=== PATIENT | male | born 1960 | race Caucasian/White ===

== ENCOUNTER 2017-06-28 17:52 | Emergency (ER) | payer MEDICARE, MEDICAID ==
[2017-06-28 18:00] VITALS: BP 106/72
--- NOTE | 2017-06-28 18:18 | EDM.PDOC ---
ED HPI GENERAL MEDICAL PROBLEM - General Chief Complaint: Upper Extremity Injury/Pain Stated Complaint: RIGHT LOWER ARM Time Seen by Provider: 06/28/17 17:57 Source of Information: Reports: Patient, RN, RN Notes Reviewed History Limitations: Reports: No Limitations - History of Present Illness INITIAL COMMENTS - FREE TEXT/NARRATIVE: Patient presents to the ED at [facility] complaining of right forearm pain secondary to injury. Patient states he was working on his travel trailer and had it propped up. He states the trailer somehow felt off the holdings and landed on his right forearm. Patient denies any other injury or trauma. No previous right arm surgeries. Patient denies any right elbow are right wrist complaints. Patient has complete ROM of the right upper extremity. Onset Date: 06/26/17 Duration: Waxing/Waning Location: Reports: Upper Extremity, Right (Right forearm) Quality: Reports: Ache Severity: Mild Context: Reports: Trauma Treatments MEDICAL SUPERVISOR: Reports: NSAIDS, Other (see below) (Tramadol) Right Arm Pain Score (Numeric/FACES): 5 - Related Data Allergies Allergy/AdvReac Type Severity Reaction Status Date / Time No Known Allergies Allergy Verified 06/28/17 18:02 Home Meds: Home Meds Cyanocobalamin (Vitamin B-12) [Liquid B-12] 1,000 mcg PO ASDIRECTED 02/07/14 [ History] Nystatin/Triamcinolone Crm [Nystatin/Triamcinolone Cream] 1 applic TOP TID PRN 02/07/14 [History] Omeprazole [Prilosec] 40 mg PO DAILY 02/07/14 [History] Pregabalin [Lyrica] 100 mg PO BID 02/07/14 [History] Promethazine [Phenergan] 25 mg PO TID PRN 02/07/14 [History] Valsartan/Hydrochlorothiazide [Valsartan-Hctz 160-25 mg Tab] 0.5 tab PO DAILY [History] traMADol [Ultram] 50 mg PO Q6H PRN 02/07/14 [History] Sildenafil [Viagra] 1 tab PO ASDIRECTED 07/31/15 [History] Past Medical History Cardiovascular History: Reports: Hypertension Gastrointestinal History: Reports: GERD Other Gastrointestinal History: hernia Other Genitourinary History: ED Musculoskeletal History: Reports: Back Pain, Chronic - Past Surgical History GI Surgical History: Reports: Cholecystectomy Social & Family History - Tobacco Use Smoking Status *Q: Never Smoker Years of Tobacco use: 39 Packs/Tins Daily: 1 Second Hand Smoke Exposure: No - Alcohol Use Days Per Week of Alcohol Use: 0 Number of Drinks Per Day: 0 Total Drinks Per Week: 0 - Recreational Drug Use Recreational Drug Use: No Drug Use in Last 12 Months: No Review of Systems - Review of Systems Review Of Systems: See Below Constitutional: Denies: Chills, Fever Respiratory: Denies: Shortness of Breath, Cough Cardiovascular: Denies: Chest Pain, Palpitations Musculoskeletal: Reports: Arm Pain (Right forearm), Muscle Pain, Muscle Stiffness Skin: Reports: No Symptoms Neurological: Reports: No Symptoms ED EXAM, GENERAL - Physical Exam Exam: See Below Exam Limited By: No Limitations General Appearance: Alert, No Apparent Distress Respiratory/Chest: No Respiratory Distress, Lungs Clear, Normal Breath Sounds Cardiovascular: Normal Peripheral Pulses, Regular Rate, Rhythm Peripheral Pulses: 2+: Radial (L), Radial (R) Extremities: Arm Pain, Increased Warmth, Redness. No: Limited Range of Motion Neurological: Alert, Oriented Skin Exam: Warm, Dry, Intact, Normal Color, No Rash Course - Vital Signs Last Recorded V/S: Last Vital Signs Temp 37.7 C 06/28/17 17:57 Pulse 91 06/28/17 17:57 Resp 18 06/28/17 17:57 BP 106/72 06/28/17 17:57 Pulse Ox 95 06/28/17 17:57 - Orders/Labs/Meds Orders: Active Orders 24 hr Category Date Time Status Forearm 2V Rt [CR] Stat Exams 06/28/17 18:23 Ordered Departure - Departure Time of Disposition: 18:40 Disposition: Home, Self-Care 01 Condition: Good Clinical Impression: Right arm pain Right forearm injury Qualifiers: Encounter type: initial encounter Qualified Code(s): S59.911A - Unspecified injury of right forearm, initial encounter - Discharge Information Instructions: Pain Medicine Instructions, [id number], Muscle Pain, Adult Forms: ED Department Discharge Additional Instructions: 1. Stay well hydrated and rest 2. Rest, elevate, and ice the right forearm several times a day; pain and symptoms will not get better unless the arm is rested 3. Use NASH wrap to help with swelling and pain 4. May alternate Tylenol/Advil as needed 5. Continue to use your Tramadol 5. See you Primary as symptoms warrant - Problem List Review Problem List Initiated/Reviewed/Updated: Yes - My Orders Last 24 Hours: My Active Orders 06/28/17 18:23 Forearm 2V Rt [CR] Stat - Assessment/Plan Last 24 Hours: My Active Orders 06/28/17 18:23 Forearm 2V Rt [CR] Stat
== END 2017-06-28 18:47 | disposition home or self-care (01) ==
LOC: VM.ED 17:52
DX: S59.911A Unspecified injury of right forearm, initial encounter (principal); I10 Essential (primary) hypertension; K21.9 Gastro-esophageal reflux disease without esophagitis; Z90.49 Acquired absence of other specified parts of digestive tract; Z79.899 Other long term (current) drug therapy; W20.8XXA Other cause of strike by thrown, projected or falling object, initial encounter; Y99.0 Civilian activity done for income or pay
CPT/HCPCS: 73090-RT; 99283; 99283-GF

== ENCOUNTER 2018-02-15 12:07 | Emergency (ER) | payer MEDICARE, MEDICAID ==
--- NOTE | 2018-02-15 12:25 | EDM.PDOC ---
ED HPI GENERAL MEDICAL PROBLEM - General Chief Complaint: General Stated Complaint: FALL Time Seen by Provider: 02/15/18 12:14 Source of Information: Reports: Patient, Family, RN, RN Notes Reviewed History Limitations: Reports: No Limitations - History of Present Illness INITIAL COMMENTS - FREE TEXT/NARRATIVE: Patient presents to the ED at [facility] complaining of left lower rib pain s/p fall. Patient states he was in the shower when he fell. He states as he was turning around in the shower, he slipped and fell. Patient denies any head injury or trauma. Patient remember the entire incident. Patient denies any back pain. No neck pain. Patient states it is hard to take in a deep breath due to the pain. Otherwise, no other concerns Onset: Today, Sudden Onset Date: 02/15/18 Onset Time: 11:15 Duration: Constant Location: Reports: Chest (Left lower) Quality: Reports: Sharp, Stabbing Severity: Severe Improves with: Reports: Rest Worsens with: Reports: Breathing, Movement Context: Reports: Trauma Associated Symptoms: Reports: No Other Symptoms Treatments SENIOR SOLUTIONS CONSULTANT: Reports: Other (see below) (none) - Related Data Allergies Allergy/AdvReac Type Severity Reaction Status Date / Time No Known Allergies Allergy Verified 02/15/18 12:26 Home Meds: Home Meds Cyanocobalamin (Vitamin B-12) [Liquid B-12] 1,000 mcg PO ASDIRECTED 02/07/14 [ History] Nystatin/Triamcinolone Crm [Nystatin/Triamcinolone Cream] 1 applic TOP TID PRN 02/07/14 [History] Omeprazole [Prilosec] 40 mg PO DAILY 02/07/14 [History] Pregabalin [Lyrica] 100 mg PO BID 02/07/14 [History] Promethazine [Phenergan] 25 mg PO TID PRN 02/07/14 [History] Valsartan/Hydrochlorothiazide [Valsartan-Hctz 160-25 mg Tab] 0.5 tab PO DAILY [History] traMADol [Ultram] 50 mg PO Q6H PRN 02/07/14 [History] Sildenafil [Viagra] 1 tab PO ASDIRECTED 07/31/15 [History] Cyclobenzaprine HCl 1 tab PO Q8H PRN 5 Days #20 tablet 02/15/18 [Rx] Past Medical History Cardiovascular History: Reports: Hypertension Gastrointestinal History: Reports: GERD Other Gastrointestinal History: hernia Other Genitourinary History: ED Musculoskeletal History: Reports: Back Pain, Chronic - Past Surgical History GI Surgical History: Reports: Cholecystectomy Social & Family History - Tobacco Use Smoking Status *Q: Never Smoker Years of Tobacco use: 39 Packs/Tins Daily: 1 Second Hand Smoke Exposure: No - Alcohol Use Days Per Week of Alcohol Use: 0 Number of Drinks Per Day: 0 Total Drinks Per Week: 0 - Recreational Drug Use Recreational Drug Use: No Drug Use in Last 12 Months: No ED ROS GENERAL - Review of Systems Review Of Systems: See Below Constitutional: Denies: Fever, Chills, Weakness Respiratory: Reports: Shortness of Breath (from pain), Pleuritic Chest Pain. Denies: Cough Cardiovascular: Denies: Chest Pain, Palpitations GI/Abdominal: Denies: Abdominal Pain, Nausea, Vomiting Musculoskeletal: Reports: Muscle Pain, Muscle Stiffness. Denies: Neck Pain, Shoulder Pain, Arm Pain Skin: Reports: No Symptoms Neurological: Reports: No Symptoms. Denies: Dizziness, Headache ED EXAM, GENERAL - Physical Exam Exam: See Below Exam Limited By: No Limitations General Appearance: Alert, No Apparent Distress Eye Exam: Bilateral Eye: EOMI, Normal Inspection, PERRL Ears: Normal External Exam, Normal Canal, Normal TMs Ear Exam: Bilateral Ear: TM normal Head: Atraumatic, Normocephalic Neck: Supple Respiratory/Chest: No Respiratory Distress, Lungs Clear, Normal Breath Sounds, Splinting (Left lower chest wall) Cardiovascular: Regular Rate, Rhythm GI/Abdominal: Normal Bowel Sounds, Soft, Non-Tender Neurological: Alert, Oriented Skin Exam: Warm, Dry, Intact, Ecchymosis (slight, around Left lower chest wall) Course - Orders/Labs/Meds Orders: Active Orders 24 hr Category Date Time Status Ribs 2V w Chest Lt [CR] Stat Exams 02/15/18 12:19 Ordered Departure - Departure Time of Disposition: 12:43 Disposition: Home, Self-Care 01 Condition: Good Clinical Impression: Rib pain on left side Ribs, multiple fractures Qualifiers: Encounter type: initial encounter Fracture type: closed Laterality: left Qualified Code(s): S22.42XA - Multiple fractures of ribs, left side, initial encounter for closed fracture Fall Qualifiers: Encounter type: initial encounter Qualified Code(s): W19.XXXA - Unspecified fall, initial encounter - Discharge Information Prescriptions: Cyclobenzaprine HCl 1 tab PO Q8H PRN 5 Days #20 tablet PRN Reason: Muscle Spasm Instructions: Rib Fracture, Cyclobenzaprine tablets Referrals: Bandar Alvarado MD [Physician] - Forms: ED Department Discharge Additional Instructions: 1. Stay well hydrated and rest 2. Continue taking Tramadol as prescribed by your family provider 3. Take muscles relaxer as needed every 8 hours 4. May alternate heat/ice to left lower ribs 5. May alternate Tylenol/Advil as needed for pain 6. Recommend follow up with Dr. Alvarado to check for proper healing 7. Call us with any questions/concerns - Problem List Review Problem List Initiated/Reviewed/Updated: Yes - My Orders Last 24 Hours: My Active Orders 02/15/18 12:19 Ribs 2V w Chest Lt [CR] Stat - Assessment/Plan Last 24 Hours: My Active Orders 02/15/18 12:19 Ribs 2V w Chest Lt [CR] Stat Assessment:: Left Rib fractures Fall Rib pain Plan: Reviewed xrays with patient. Proper treatment will be to let fractures heal on their own. Will prescribe Flexeril for muscle spasm. Patient can alternate Tylenol/Advil as needed. May need repeat xrays in 4-6 weeks to check for resolution.
[2018-02-15 14:03] VITALS: BP 130/89
== END 2018-02-15 13:00 | disposition home or self-care (01) ==
LOC: VM.ED 12:07
DX: S22.42XA Multiple fractures of ribs, left side, initial encounter for closed fracture (principal); I10 Essential (primary) hypertension; K21.9 Gastro-esophageal reflux disease without esophagitis; Z79.899 Other long term (current) drug therapy; W19.XXXA Unspecified fall, initial encounter; Y93.E1 Activity, personal bathing and showering
CPT/HCPCS: 71101-LT; 99283; 99283-GF

== ENCOUNTER 2018-02-19 00:22 | Emergency (ER) | payer MEDICARE, MEDICAID ==
[2018-02-19 00:28] VITALS: BP 161/92
[2018-02-19] MEDS ORDERED: Ketorolac 30 MG/ML SDV IM ONE (00:31)
--- NOTE | 2018-02-19 00:39 | EDM.PDOC ---
ED HPI GENERAL MEDICAL PROBLEM - General Chief Complaint: General Stated Complaint: rib pain Time Seen by Provider: 02/19/18 00:31 Source of Information: Reports: Patient History Limitations: Reports: No Limitations - History of Present Illness INITIAL COMMENTS - FREE TEXT/NARRATIVE: Patient was seen in the ER earlier this week on Wednesday after a fall in the shower. He was seen by Mauro Alcantara. He did have fractures of the eighth and ninth ribs on the left side. No pneumo or hemothorax seen at that time. Was given flexeril at discharge. He already has tramadol at home. His only complaint this morning is that he is in pain and wants pain medications. He is not taking ibuprofen or tylenol, is not taking the flexeril, and is not taking the tramadol stating that they do not work. He has not attempted to see anyone in the clinic. Location: Reports: Chest (left ribs) Quality: Reports: Stabbing Severity: Moderate Worsens with: Reports: Breathing, Movement Associated Symptoms: Reports: No Other Symptoms Left Back Pain Score (Numeric/FACES): 10 - Related Data Allergies Allergy/AdvReac Type Severity Reaction Status Date / Time No Known Allergies Allergy Verified 02/19/18 00:28 Home Meds: Home Meds Cyanocobalamin (Vitamin B-12) [Liquid B-12] 1,000 mcg IM ASDIRECTED 02/07/14 [ History] Nystatin/Triamcinolone Crm [Nystatin/Triamcinolone Cream] 1 applic TOP BID PRN 02/07/14 [History] Omeprazole [Prilosec] 40 mg PO DAILY 02/07/14 [History] Pregabalin [Lyrica] 100 mg PO BID 02/07/14 [History] Promethazine [Phenergan] 25 mg PO TID PRN 02/07/14 [History] Valsartan/Hydrochlorothiazide [Valsartan-Hctz 160-25 mg Tab] 0.5 tab PO DAILY [History] traMADol [Ultram] 50 mg PO Q6H PRN 02/07/14 [History] Albuterol [Ventolin HFA] 2 puff IH Q4H PRN 02/15/18 [History] Cyclobenzaprine HCl 1 tab PO Q8H PRN 5 Days #20 tablet 02/15/18 [Rx] DULoxetine HCl [Duloxetine HCl] 120 mg PO DAILY 02/15/18 [History] Past Medical History Cardiovascular History: Reports: Hypertension Gastrointestinal History: Reports: GERD Other Gastrointestinal History: hernia Other Genitourinary History: ED Musculoskeletal History: Reports: Back Pain, Chronic - Past Surgical History GI Surgical History: Reports: Cholecystectomy Social & Family History - Tobacco Use Smoking Status *Q: Never Smoker Years of Tobacco use: 39 Packs/Tins Daily: 1 Second Hand Smoke Exposure: No - Alcohol Use Days Per Week of Alcohol Use: 0 Number of Drinks Per Day: 0 Total Drinks Per Week: 0 - Recreational Drug Use Recreational Drug Use: No Drug Use in Last 12 Months: No ED ROS GENERAL - Review of Systems Review Of Systems: See Below Constitutional: Reports: No Symptoms HEENT: Reports: No Symptoms Respiratory: Reports: No Symptoms Cardiovascular: Reports: No Symptoms Endocrine: Reports: No Symptoms GI/Abdominal: Reports: No Symptoms : Reports: No Symptoms Musculoskeletal: Reports: Other (chest pain) Skin: Reports: No Symptoms Neurological: Reports: No Symptoms Psychiatric: Reports: No Symptoms Hematologic/Lymphatic: Reports: No Symptoms Immunologic: Reports: No Symptoms ED EXAM, GENERAL - Physical Exam Exam: See Below Exam Limited By: No Limitations General Appearance: Alert, WD/WN, No Apparent Distress Respiratory/Chest: No Respiratory Distress, Lungs Clear, Normal Breath Sounds, No Accessory Muscle Use, Chest Non-Tender Cardiovascular: Normal Peripheral Pulses, Regular Rate, Rhythm, No Edema, No Gallop, No JVD, No Murmur, No Rub GI/Abdominal: Normal Bowel Sounds, Soft, Non-Tender, No Organomegaly, No Distention, No Abnormal Bruit, No Mass Neurological: Alert, Oriented, CN II-XII Intact, Normal Cognition, Normal Gait, Normal Reflexes, No Motor/Sensory Deficits Course - Vital Signs Last Recorded V/S: Last Vital Signs Temp 37.2 C 02/19/18 00:23 Pulse 86 02/19/18 00:23 Resp 18 02/19/18 00:23 BP 161/92 H 02/19/18 00:23 Pulse Ox 94 L 02/19/18 00:23 - Orders/Labs/Meds Meds: Medications Discontinued Medications Generic Name Dose Route Start Last Admin Trade Name Freq PRN Reason Stop Dose Admin Ketorolac Tromethamine 30 mg 02/19/18 00:31 02/19/18 00:38 Toradol IM 02/19/18 00:32 30 mg ONETIME ONE Administration Departure - Departure Time of Disposition: 00:44 Disposition: Home, Self-Care 01 Condition: Good Clinical Impression: Rib pain on left side - Discharge Information Instructions: Chest Wall Pain, [id number] Referrals: PCP,Unobtain [Primary Care Provider] - Forms: ED Department Discharge Additional Instructions: You need to take the ibuprofen, tylenol, ultram, and flexeril as directed. Take all 4 and don't refuse to take them because they "don't work" Try to apply heat to the area. This may help Rib fractures are painful and will be for several weeks Follow up at the clinic next week Call with any questions or concerns - Problem List & Annotations (1) Ribs, multiple fractures SNOMED Code(s): 8499327 Code(s): S22.49XA - MULTIPLE FRACTURES OF RIBS, UNSP SIDE, INIT FOR CLOS FX Status: Acute Priority: Low Qualifiers: Encounter type: initial encounter Fracture type: closed Laterality: left Qualified Code(s): S22.42XA - Multiple fractures of ribs, left side, initial encounter for closed fracture (2) Rib pain on left side SNOMED Code(s): 543906826 Code(s): R07.81 - PLEURODYNIA Status: Acute Priority: Low - Problem List Review Problem List Initiated/Reviewed/Updated: Yes - Assessment/Plan Assessment:: left rib pain Plan: You need to take the ibuprofen, tylenol, ultram, and flexeril as directed. Take all 4 and don't refuse to take them because they "don't work" Try to apply heat to the area. This may help Rib fractures are painful and will be for several weeks Follow up at the clinic next week Call with any questions or concerns
== END 2018-02-19 00:55 | disposition home or self-care (01) ==
LOC: VM.ED 00:22
DX: S22.42XA Multiple fractures of ribs, left side, initial encounter for closed fracture (principal); I10 Essential (primary) hypertension; K21.9 Gastro-esophageal reflux disease without esophagitis; Z90.49 Acquired absence of other specified parts of digestive tract; W18.2XXA Fall in (into) shower or empty bathtub, initial encounter; Z79.899 Other long term (current) drug therapy
CPT/HCPCS: 71046; 96372; 99283; 99283-GF; J1885